=== PATIENT | male | born 1950 | race Caucasian/White ===

== ENCOUNTER 2017-05-28 19:57 | Emergency (ER) | payer BC, MEDICARE ==
[2017-05-28 20:21] VITALS: BP 110/89
--- NOTE | 2017-05-28 20:38 | UC ---
Ear Complaint HPI - HPI Summary HPI Summary: Several days ago pt developed "sharp pain" in R ear. Swims every day, so he bought OTC swimmer's ear drops. They didn't help, so he bought ear wax drops. Hearing feels muffled, ear feels full, pain is less severe. Denies URI sx. - History of Current Complaint Chief Complaint: UCEar Stated Complaint: EAR PAIN,CLOGGED Time Seen by Provider: 05/28/17 20:21 Hx Obtained From: Patient Onset/Duration: Gradual Onset, Lasting Days Severity Initially: Moderate Severity Currently: Mild Aggravating Factors: Nothing Alleviating Factors: Nothing Associated Signs/Symptoms: Positive: Hearing Loss. Negative: URI Symptoms - Allergies/Home Medications Allergies/Adverse Reactions: Allergies Allergy/AdvReac Type Severity Reaction Status Date / Time No Known Allergies Allergy Verified 05/28/17 20:21 Home Medications: Home Medications Atorvastatin* [Lipitor 10 MG*] 1 tab PO DAILY 05/28/17 [History Confirmed ] PMH/Surg Hx/FS Hx/Imm Hx Cancer History: Prostate Cancer - Surgical History Surgical History: Yes Surgery Procedure, Year, and Place: 2009 TURP [facility] [place]. 1983 FX LEG/ANKLE SURGERYX2 [facility]. L DETACHED RETINA REPAIR 1996 [facility]. 1997 L DETACHED RETINA [facility]. T+ A A CHILD - Family History Known Family History: Negative: Blood Disorder - Social History Alcohol Use: Occasionally Alcohol Amount: 1/NIGHT Substance Use Type: None Smoking Status (MU): Never Smoked Tobacco Review of Systems Constitutional: Negative Skin: Negative Eyes: Negative ENT: Ear Ache Respiratory: Negative Cardiovascular: Negative Gastrointestinal: Negative Genitourinary: Negative Motor: Negative Neurovascular: Negative Musculoskeletal: Negative Neurological: Negative Psychological: Negative Is Patient Immunocompromised?: No All Other Systems Reviewed And Are Negative: Yes Physical Exam Triage Information Reviewed: Yes Appearance: Well-Appearing, No Pain Distress, Well-Nourished Vital Signs: Initial Vital Signs Temp 99.0 F 05/28/17 20:19 Pulse 60 05/28/17 20:19 Resp 12 05/28/17 20:19 BP 110/89 05/28/17 20:19 Pulse Ox 98 05/28/17 20:19 Vital Signs Reviewed: Yes Eye Exam: Normal Eyes: Positive: Conjunctiva Clear ENT: Positive: TMs normal, Other - exudate, erythema in R ear canal. Negative: TM bulging, TM dull, TM red Dental Exam: Normal Neck exam: Normal Neck: Positive: Supple, Nontender, No Lymphadenopathy Respiratory Exam: Normal Respiratory: Positive: Chest non-tender, Lungs clear, Normal breath sounds, No respiratory distress, No accessory muscle use Cardiovascular Exam: Normal Cardiovascular: Positive: RRR, No Murmur Musculoskeletal Exam: Normal Neurological Exam: Normal Neurological: Positive: Alert Psychological Exam: Normal Skin Exam: Normal Ear Complaint Course/Dx - Differential Dx/Diagnosis Provider Diagnoses: R otitis externa Discharge - Discharge Plan Condition: Stable Disposition: HOME Prescriptions: Neomyc/Polym/HC 1% OTIC SUSP* [Cortisporin Otic Susp 1%*] 4 drop RIGHT EAR QID # 1 btl Patient Education Materials: Otitis Externa (ED) Referrals: Zev Johnson MD [Primary Care Provider] - Additional Instructions: You should avoid swimming until your ear symptoms have cleared up. When you resume, I recommend you use the alcohol drops to dry out your ear canal after you swim.
== END 2017-05-28 20:44 | disposition home or self-care (01) ==
LOC: UCEAST 19:57
DX: H60.91 Unspecified otitis externa, right ear (principal); Z85.46 Personal history of malignant neoplasm of prostate
CPT/HCPCS: 99202; G0463

== ENCOUNTER 2017-08-08 09:50 | Day surgery (SDC) | payer MEDICARE ==
[2017-08-08] MEDS ORDERED: fentaNYL* 50 MCG/ML 2 ML VIAL (100 MCG VIAL) ONE (11:58)
[2017-08-08] MEDS ORDERED: Midazolam* 1 MG/ML 2 ML VIAL (2 MG) ONE ×2 (11:58→12:39)
[2017-08-08] MEDS ORDERED: Phenylephrine 2.5% OPTH.SOL* 2 ML BTL ONE (12:46)
[2017-08-08] MEDS ORDERED: Tetracaine 0.5% OPTH.SOL 4 ML* 1 DROP BTL ONE (12:46)
[2017-08-08] MEDS ORDERED: Lidocaine 1% MPF* 2 ML VIAL ONE (12:46)
[2017-08-08] MEDS ORDERED: Neomycin/Polymy/Dex OPHTH.OIN* 3.5 GM ONE (12:46)
[2017-08-08] MEDS ORDERED: Cyclopentolate 1% OPTH.SOL* 2 ML BTL ONE (12:46)
[2017-08-08] MEDS ORDERED: Tropicamide 1% OPTH.SOL* BTL ONE (12:46)
[2017-08-08] MEDS ORDERED: Ketorolac 0.5% OPHTH (NF) 0.5 % 5 ML BTL ONE (12:46)
[2017-08-08 13:21] VITALS: BP 117/73
--- NOTE | 2017-08-09 12:01 | OP ---
OPERATIVE REPORT: DATE OF OPERATION: 08/08/17 DATE OF : 48 SURGEON: Dr. Deon Hannah. PROCUREMENT CONSULTANT: None. ANESTHESIA: Topical with intravenous sedation. PRE-OP DIAGNOSIS: Cataract, left eye. POST-OP DIAGNOSIS: Cataract, left eye. OPERATIVE PROCEDURE: Phacoemulsification and cataract extraction with posterior chamber intraocular lens implant, left eye. COMPLICATIONS: None. BLOOD LOSS: None. DESCRIPTION OF PROCEDURE: The patient was brought to the operating room and received a small amount of intravenous sedation. A drop of Tetracaine was placed in his left eye. He was prepped and draped in the usual sterile fashion for ophthalmic surgery and attention was directed to the left eye where a speculum was placed. A paracentesis was created at the 5 o'clock position and 0.1 cc of 1 percent preservative-free Lidocaine was injected into the anterior chamber followed by DisCoVisc. The eye w as digitally stabilized while a 2.75 mm keratome was used to create a triplanar clear corneal incisio n at the 3 o'clock position. A continuous curvilinear capsulorrhexis was created with a cystotome an d Utrata forceps. BSS on a cannula was used to hydrodissect the lens from the capsule. Phacoemulsifi cation was performed in a [id number] technique to create four fragments which were removed. Residual cortical material was removed with irrigation and aspiration. DisCoVisc was used to inflate the capsular bag and an [id number] 13.5 diopter lens was folded and inserted into the capsular bag. Dis CoVisc was removed using irrigation and aspiration. BSS on a cannula was used to hydrate the corneal stroma and seal the wound. At the end of the case the pupil was round and the lens was centered. T he eye was of normal pressure and the wound was water tight. The speculum was removed and topical Ma xitrol ointment was placed on the surface of the eye. The eye was closed, patched and shielded and t he patient was sent to the recovery room in stable condition with post operative instructions and fol low-up appointment given. [id number]/[facility] #: [id number]
== END 2017-08-08 13:14 | disposition home or self-care (01) ==
LOC: OREAST 09:50
PROVIDERS: ATTEND Ophthalmology
DX: H25.12 Age-related nuclear cataract, left eye (principal); E78.5 Hyperlipidemia, unspecified; K21.9 Gastro-esophageal reflux disease without esophagitis
CPT/HCPCS: A9270-GY; J2250; J3010; V2632

== ENCOUNTER 2017-11-03 07:01 | Emergency (ER) | payer MEDICARE ==
[2017-11-03] MEDS ORDERED: diPHENhydraMINE IV* 50 MG/ML 1 ml VIAL (BENADRYL) IV ONE (07:04)
[2017-11-03] MEDS ORDERED: Famotidine IV* 10 MG/ML 2 ML (20 mg) IV SLOW PU ONE ×2 (07:05→07:08)
[2017-11-03] MEDS ORDERED: methylPREDNISolone 125 MG* 2 ML VIAL IV ONE (07:05)
[2017-11-03 07:09] VITALS: BP 132/81
--- NOTE | 2017-11-03 10:23 | UC ---
Sheryl Green Gabriel, scribed for Angelo Pathak MD on 11/03/17 at 0722 . Allergic Reaction HPI - HPI Summary HPI Summary: This patient is a 67 year old M presenting to [facility] with a chief complaint of an allergic reaction that occurred at 0600 this morning. The patient states he woke up and performed his usual morning routine. Then after a mild walk the patient began having swelling under his eyes, at this point he took two pills of Benadryl. After this he had some mild swelling of his face, throat, and splotching on his ABD. Pt also reports some voice changes. - History of Current Complaint Chief Complaint: UCAllergicReaction Stated Complaint: ALLERGIC REACTION Time Seen by Provider: 11/03/17 07:04 Hx Obtained From: Patient Onset/Duration: Lasting Hours, Still Present Pain Intensity: 0 Pain Scale Used: 0-10 Numeric Associated Signs And Symptoms: Positive: Other: - swelling in mouth and eyes - Allergies/Home Medications Allergies/Adverse Reactions: Allergies Allergy/AdvReac Type Severity Reaction Status Date / Time No Known Allergies Allergy Verified 11/03/17 07:38 PMH/Surg Hx/FS Hx/Imm Hx Other History Of: Negative For: Hepatitis C - Surgical History Surgical History: Yes Surgery Procedure, Year, and Place: 2009 TURP [facility] [place]. 1983 FX LEG/ANKLE SURGERYX2 [facility] LEFT DETACHED RETINA REPAIR 1996 [facility] [place]. 1997 LEFT DETACHED RETINA [facility]. T+A A CHILD. 2016 RIGHT KNEE ARTHROSCOPY [place]. right cataract extraction with IOL 2013 [facility] [place] - Family History Known Family History: Negative: Renal Disease, Seizure Disorder, Blood Disorder - Social History Lives: With Family Alcohol Use: Daily Alcohol Amount: 1 GLASS WINE PER DAY Substance Use Type: None Smoking Status (MU): Never Smoked Tobacco Review of Systems Skin: Other - splotching Eyes: Other - swelling ENT: Other - swelling of the throat and mouth Musculoskeletal: Edema - of face All Other Systems Reviewed And Are Negative: Yes Physical Exam - Summary Physical Exam Summary: General: well-appearing, no pain distress Skin: edema of the face, there are some hives 1cm in diameter on the ABD and chest Head: normal Eyes: EOMI, LAINE, swelling under eyes ENT: normal Neck: supple, nontender Respiratory: air way is clear to auscultation, no stridor, no wheezing, no respiratory distress Cardiovascular: RRR Abdomen: soft, nontender Bowel: present Musculoskeletal: normal, strength/ROM intact Neurological: sensory/motor intact, A&O x3 Psychological: affect/mood appropriate Triage Information Reviewed: Yes Vital Signs: Initial Vital Signs Temp 98.2 F 11/03/17 07:04 Pulse 60 11/03/17 07:04 Resp 22 11/03/17 07:04 BP 132/81 11/03/17 07:04 Pulse Ox 95 11/03/17 07:04 Vital Signs Reviewed: Yes Re-Evaluation - Re-Evaluation First Eval Re-Evaluation Time: 07:50 Change: Improved Comment: Pt states he feels much better. It is easier to breath and his tongue swelling has gone down. Allergic Reaction Course/Dx - Course Course Of Treatment: IMPROVED IN CLINIC WITH BENADRYL 5OMG, PEPCID 40MG AND SOLUMEDROL 125MG IV. F/U PMD; RETURN IF WORSE. - Differential Dx/Diagnosis Provider Diagnoses: ALLERGIC REACTION Discharge - Sign-Out/Discharge Documenting (check all that apply): Discharge/Admit/Transfer - Discharge Plan Condition: Stable Disposition: HOME Prescriptions: EPINEPHrine [Epipen 2-Sanchez] 0.3 mg IM ONCE PRN #1 inj PRN Reason: Allergy Symptoms Famotidine TAB* [Pepcid 20 MG TAB*] 20 mg PO BID PRN #10 tab PRN Reason: Allergy Symptoms predniSONE TAB* [Deltasone 20 MG TAB*] 40 mg PO DAILY #10 tab Patient Education Materials: General Allergic Reaction (ED) Referrals: Zev Johnson MD [Primary Care Provider] - Additional Instructions: FOLLOW UP WITH YOUR DOCTOR. TAKE BENADRYL 50MG EVERY 6 HOURS NEEDED. TAKE PEPCID 20MG TWICE A DAY NEEDED. TAKE PREDNISONE DIRECTED NEEDED. GET RECHECKED FOR ANY WORSENING OF YOUR CONDITION OR QUESTIONS OR CONCERNS. - Billing Disposition and Condition Condition: STABLE Disposition: Home The documentation as recorded by the Sheryl keane Gabriel accurately reflects the service I personally performed and the decisions made by me, Angelo Pathak MD.
== END 2017-11-03 08:54 | disposition home or self-care (01) ==
LOC: UCEAST 07:01
DX: T78.40XA Allergy, unspecified, initial encounter (principal)
CPT/HCPCS: 96374; 96375; 99212; G0463; J1200; J2930

== ENCOUNTER 2020-06-02 08:31 | Observation (INO) ==
[~2020-06-02 08:31] MED LIST: Buffered Lidocaine 1% SYRIN 1 ml INTRADERM ONE; Famotidine IV 10 MG/ML 2 ml VIAL (20 mg) IV ONE; Lactated Ringers 1000 ml BAG 1,000 ML IV SCH; ceFAZolin 2 GM PREMIX 2 GM/50 ML BAG ONE
[2020-06-02] MEDS ORDERED: Famotidine IV 10 MG/ML 2 ml VIAL (20 mg) ONE (08:47)
[2020-06-02] MEDS ORDERED: Glycopyrrolate IV 0.2 MG/ML 1 ML VIAL ONE (09:40)
[2020-06-02] MEDS ORDERED: Ketamine HCL 50 mg/ml 10 ml VIAL (500 MG) ONE (09:40)
[2020-06-02] MEDS ORDERED: Propofol 10 MG/ML 20 ML BTL ONE ×2 (09:40→11:34)
[2020-06-02] MEDS ORDERED: Midazolam 2 mg/2 ml VIAL 1 mg/ml 2 ml VIAL (2 mg) ONE ×2 (09:41→11:10)
[2020-06-02] MEDS ORDERED: Sevoflurane BOTTLE ONE (09:56)
[2020-06-02] MEDS ORDERED: ROPIVACAINE 5 MG/ML 30 ML BTL (0.5%) ONE (10:27)
[2020-06-02] MEDS ORDERED: DiMENhydriNATE IV 50 mg/ml 1 ml VIAL IV PUSH PRN (10:56)
[2020-06-02] MEDS ORDERED: Naloxone 0.4 mg VIAL 0.4 mg/ml 1 ml VIAL IV PRN (10:56)
[2020-06-02] MEDS ORDERED: oxyCODONE/Acetamin 5/325 mg TAB PO PRN (10:56)
[2020-06-02] MEDS ORDERED: Lidocaine 2% PF 5 ML VIAL ONE (11:35)
[2020-06-02] MEDS ORDERED: Morphine 2 MG/ML SYRINGE IV PRN (12:08)
[2020-06-02] MEDS ORDERED: Magnesium Hydroxide LIQ 30 ML UDC PO PRN (12:08)
[2020-06-02] MEDS ORDERED: diPHENhydraMINE 25 mg TAB PO PRN (12:08)
[2020-06-02] MEDS ORDERED: diPHENhydraMINE IV 50 MG/ML 1 ml VIAL (BENADRYL) IV PRN (12:08)
[2020-06-02] MEDS ORDERED: Ondansetron ODT 4 mg TAB 4 MG TAB PO PRN (12:08)
[2020-06-02] MEDS ORDERED: Lactulose 30 ml UDC PO PRN (12:08)
[2020-06-02] MEDS ORDERED: Ondansetron 4 mg VIAL 2 MG/ML 2 ml VIAL IV PRN (12:08)
[2020-06-02] MEDS ORDERED: HYDROmorphone 1 MG/1 ML SYRINGE ONE (13:44)
[2020-06-02] MEDS: HYDROmorphone 1 MG/1 ML SYRINGE IV PRN ×4 (13:45→14:34)
[2020-06-02] MEDS: Lactated Ringers 1000 ml BAG 1,000 ML IV SCH (15:47)
[2020-06-02] MEDS: Magnesium Hydroxide LIQ 30 ML UDC PO SCH (20:13)
[2020-06-02] MEDS: ceFAZolin 1 GM ADVAN 1 GM in NS 0.9% 50 ML 50 ML IVPB SCH (20:25)
[2020-06-03] MEDS: Lactated Ringers 1000 ml BAG 1,000 ML IV SCH (01:41)
[2020-06-03] MEDS: ceFAZolin 1 GM ADVAN 1 GM in NS 0.9% 50 ML 50 ML IVPB SCH ×2 (03:39→12:04)
[2020-06-03 05:15] LABS: Hematocrit 36 % (42-52); Hemoglobin 12.8 g/dL (14.0-18.0); Mean Platelet Volume 6.5 fL (7.4-10.4); Platelet Count 196 10^3/uL (150-450)
[2020-06-03 05:36] LABS: BUN/Creatinine Ratio 15.1 (8-20); Calcium 8.6 mg/dL (8.6-10.3); EGFR African American 106.4 (>60); EGFR Non-African American 87.9 (>60); Potassium 4.5 mmol/L (3.5-5.0)
[2020-06-03] MEDS ORDERED: Vitamin THERAPEUTIC TAB PO SCH (09:00)
[2020-06-03] MEDS: Magnesium Hydroxide LIQ 30 ML UDC PO SCH (09:03)
[2020-06-03 11:18] VITALS: BP 110/63
== END 2020-06-03 14:00 | disposition home or self-care (01) ==
LOC: AA 08:31 → INTOOBSV 08:31 → SSU 15:13
PROVIDERS: ADMIT Orthopaedic Surgery Adult Reconstructive Orthopaedic Surgery; ATTEND Orthopaedic Surgery Adult Reconstructive Orthopaedic Surgery